=== PATIENT | female | born 1980 | race Two or more races ===

== ENCOUNTER 2019-11-27 10:27 | Outpatient (CLI) | payer OTHER | END 2019-11-27 23:59 | disposition home or self-care (01) | LOC: LAB 10:27 | PROVIDERS: ATTEND Student in an Organized Health Care Education/Training Program | DX: Z01.812 Encounter for preprocedural laboratory examination (principal); Z20.828 Contact with and (suspected) exposure to other viral communicable diseases | CPT/HCPCS: 87426; C9803 ==

== ENCOUNTER 2019-12-02 05:40 | Day surgery (SDC) | payer OTHER ==
[~2019-12-02] VITALS: Ht 160 cm; Wt 93.4 kg
[2019-12-02] VITALS (8 sets, daily range): BP systolic 128–137; BP diastolic 72–85
--- NOTE | 2019-12-02 06:30 | NUR ---
RN ADMITTING NOTES PATIENT RECEIVED FOR DAY SURGERY. PATIENT AMBULATORY, A/O X 4. STABLE ON RA. VITALS TAKEN T 98.7 BP 117/ 86 HR 67 SPO2 100%. SKIN ASSESSMENT DONE, PICTURES TAKEN NEEDED. NO SIGNS OF ACUTE DISTRESS. NO COMPLAINTS OF PAIN OR DISCOMFORT AT THE MOMENT. BELONGINGS ACCOUNTED FOR. CONSENTS SIGNED. IV STARTED ON L AC #20. SAFETY PRECAUTIONS IN PLACE WITH BED IN LOWEST POSITION, CALL LIGHT WITHIN REACH, BREAKS ON, SIDE RAILS UP. WILL CONTINUE TO MONITOR.
--- NOTE | 2019-12-02 07:05 | NUR ---
RN NOTES PATIENT PICKED UP BY OR STAFF VIA [facility].
[2019-12-02] MEDS ORDERED: ANESTHESIA TRAY IN PYXIS 1 EA TRAY MC ONE (07:13)
[2019-12-02] MEDS ORDERED: EPINEPHRINE (1:1000) 1 MG/ML AMPUL ONE (07:14)
--- NOTE | 2019-12-02 07:15 | NUR ---
MS/RN - Opening notes Patient was taken to OR for right hip arthroscopy with Dr. Marmolejo.
[2019-12-02] MEDS ORDERED: ALBUTEROL 17GM INHALER ONE (07:32)
[2019-12-02] MEDS ORDERED: MIDAZOLAM HCL 2 MG/2ML VIAL ONE (07:39)
[2019-12-02] MEDS ORDERED: HYDROMORPHONE INJ 2 MG/ML DISP.SYRIN ONE (07:39)
[2019-12-02] MEDS ORDERED: LIDOCAINE HCL/MPF 1% 30 ML VIAL IJ ONE (09:08)
[2019-12-02] MEDS ORDERED: MORPHINE SULFATE/PF 10 MG/10ML (1MG/ML) AMPUL ONE (09:08)
[2019-12-02] MEDS ORDERED: BUPIVACAINE 0.5 % PF 150 MG/30 ML VIAL ONE (09:25)
[2019-12-02] MEDS ORDERED: HYDROMORPHONE 1 MG/1 ML DISP.SYRIN ONE (09:59)
--- NOTE | 2019-12-02 11:35 | NUR ---
MS/RN - Notes 10:45 - Patient came back from surgery s/p right hip arthroscopy under the care of Dr. Marmolejo, A/O x 4, denies pain, in no acute distress, stable on room air, post-op vital signs monitored per protocol. Saline lock on the LAC is patent and intact. Right hip dressing is clean, dry, and intact. RLE is warm to touch, no swelling, denies numbness or tingling sensation. NWB on RLE, PT eval for crutches training, remove dressing in 3 days then apply band-aids, follow up with Dr. Marmolejo in 2 weeks. Patient for discharge home today when stable.
--- NOTE | 2019-12-02 13:00 | NUR ---
MS/RN - Notes Seen and evaluated by PT for crutches mobility and training.
--- NOTE | 2019-12-02 14:30 | NUR ---
MS/RN - Notes Patient for discharge home today, able to ambulate using axillary crutches, needs standby assistance with ADLs. Per patient, her boyfriend will be here around 16:00.
--- NOTE | 2019-12-02 16:18 | NUR ---
MS/RN - Discharge Patient is alert and oriented X 4, discharged home in stable condition, afebrile, denies pain, not in any form of distress. Right hip dressing is clean, dry, and intact. Reviewed discharge instructions with patient and she verbalized full understanding of all teachings including medications and follow-up care with Dr. Marmolejo in 2 weeks. Patient was advised to get help right away if she have drainage, redness, swelling or pain at the incision site, bad smell coming from the op site or the dressing, fever, chest pain, shortness of breath, palpitations, abdominal pain/distention, intractable nausea and vomiting, diarrhea, weakness, loss of consciousness or any other emergent concerns. All personal belongings with patient and she deny any missing items. Patient refused photos to be taken of skin. Saline lock removed on the left AC with catheter tip intact, no redness, no swelling noted at the site. Discharge paperwork signed and copies were given per protocol. Patient left the unit at 16:10 and was transported via private car.
== END 2019-12-02 16:44 | disposition home or self-care (01) ==
LOC: DS 05:40 → MED 05:42 → UNDOADMIN 05:42 → UNDODISIN 16:44 → DS 16:44
PROVIDERS: ATTEND Student in an Organized Health Care Education/Training Program
DX: M25.851 Other specified joint disorders, right hip (principal); E66.01 Morbid (severe) obesity due to excess calories; J45.909 Unspecified asthma, uncomplicated; K21.9 Gastro-esophageal reflux disease without esophagitis; Z79.899 Other long term (current) drug therapy
CPT/HCPCS: 29916; 36415; 73501; 84702; 85610; 85730; 86850; 87081; 97116; 97161; 97530; A4217; A4649; A6209; A6253; J0171; J0690; J1100; J1170 ×2; J2250; J2274; J2405; J2704; J2765; J3490 ×3; G0378